=== PATIENT | male | born 1990 | race Caucasian/White ===

== ENCOUNTER 2016-09-04 11:09 | Emergency (ER) | payer OTHER ==
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
[2016-09-04 13:18] VITALS: BP 134/71; PULSE 96; RESP 18; TEMP 98.4
== END 2016-09-04 13:18 | disposition home or self-care (01) ==
LOC: EC 11:09
DX: F07.81 Postconcussional syndrome (principal); G44.309 Post-traumatic headache, unspecified, not intractable; V89.2XXA Person injured in unspecified motor-vehicle accident, traffic, initial encounter; F17.200 Nicotine dependence, unspecified, uncomplicated
CPT/HCPCS: 70450; 99284

== ENCOUNTER 2021-03-06 01:41 | Emergency (ER) | payer OTHER ==
--- NOTE | 2021-03-06 02:06 | ED ---
Psych HPI - General Stated Complaint: Mental Health Time Seen by Provider: 03/06/21 01:52 Source: RN notes reviewed, old records reviewed Mode of arrival: ambulatory Limitations: no limitations - History of Present Illness Initial Comments: This is a 31-year-old male DF for evaluation of mental health. A she admits to suicidal thoughts he does have severe back pain and admits to depression is been an issue since he's been in the . Patient did make a phone call about depression today and is how she presents to the ER today MD Complaint: suicidal ideation, feels depressed -: unknown Associated Psychiatric Symptoms: depression History of same: No Quality: intermittent, getting worse Improves With: none Worsens With: none Context: significant life stressor Associated Symptoms: denies other symptoms Treatments Prior to Arrival: placed on mental health hold - Related Data Home Medications Medication Instructions Recorded Confirmed No Known Home Medications 09/04/16 09/04/16 Allergies Allergy/AdvReac Type Severity Reaction Status Date / Time No Known Allergies Allergy Verified 09/04/16 11:39 Review of Systems ROS Statement: Those systems with pertinent positive or pertinent negative responses have been documented in the HPI. ROS Other: All systems not noted in ROS Statement are negative. Past Medical History Past Medical History: No Reported History History of Any Multi-Drug Resistant Organisms: None Reported Additional Past Surgical History / Comment(s): DENTAL IMPLANTS Past Psychological History: Anxiety, Depression, PTSD Past Alcohol Use History: Occasional Past Drug Use History: None Reported General Exam General appearance: alert, in no apparent distress Head exam: Present: atraumatic, normocephalic, normal inspection Eye exam: Present: normal appearance, PERRL, EOMI. Absent: scleral icterus, conjunctival injection, periorbital swelling ENT exam: Present: normal exam, mucous membranes moist Neck exam: Present: normal inspection. Absent: tenderness, meningismus, lymphadenopathy Respiratory exam: Present: normal lung sounds bilaterally. Absent: respiratory distress, wheezes, rales, rhonchi, stridor Cardiovascular Exam: Present: regular rate, normal rhythm, normal heart sounds. Absent: systolic murmur, diastolic murmur, rubs, gallop, clicks GI/Abdominal exam: Present: soft, normal bowel sounds. Absent: distended, tenderness, guarding, rebound, rigid Extremities exam: Present: normal inspection, full ROM, normal capillary refill. Absent: tenderness, pedal edema, joint swelling, calf tenderness Back exam: Present: normal inspection Neurological exam: Present: alert, oriented X3, CN II-XII intact Psychiatric exam: Present: normal affect, normal mood Skin exam: Present: warm, dry, intact, normal color. Absent: rash Course Vital Signs 03/06/21 03/06/21 04:17 06:13 Temperature 98.6 F Pulse Rate 77 80 Respiratory 18 14 Rate Blood Pressure 135/84 106/62 O2 Sat by Pulse 98 94 L Oximetry - Reevaluation(s) Reevaluation #1: 03/06/21 02:05 Record is reviewed Reevaluation #2: 03/06/21 02:06 Medically clear for psychiatric evaluation Medical Decision Making - Medical Decision Making 28 male seen and evaluated DF for psychiatric evaluation and treatment. Patient seen here in the ER, will be given outpatient follow-up. Patient contracts for safety not homicidal or suicidal Disposition Clinical Impression: Depression, Adjustment reaction of adult life Disposition: HOME SELF-CARE Condition: Fair Instructions (If sedation given, give patient instructions): Depression (ED) Is patient prescribed a controlled substance at d/c from ED?: No Referrals: None,Stated [Primary Care Provider] - 1-2 days
[2021-03-06 04:24] VITALS: TEMP 98.6
[2021-03-06 06:13] VITALS: BP 106/62; PULSE 80; RESP 14
== END 2021-03-06 07:32 | disposition home or self-care (01) ==
LOC: EC 01:41
DX: F32.9 Major depressive disorder, single episode, unspecified (principal); F43.20 Adjustment disorder, unspecified
CPT/HCPCS: 82075; 99284; 99285

== ENCOUNTER → 2022-09-08 | Outpatient (CLI) | payer OTHER ==
--- NOTE | 2022-09-08 16:05 | MR ---
EXAMINATION TYPE: MR lumbar spine wo con DATE OF EXAM: 09/08/2022 COMPARISON: NONE HISTORY: LOW BACK PAIN for 10 years going into left buttocks. TECHNIQUE: Multiplanar, multisequence imaging of the lumbar spine is performed without IV contrast. FINDINGS: Sagittal images of the lumbar spine show vertebral body heights and alignment to appear sat isfactory. There is disc desiccation with mild disc space narrowing at L5-S1 level otherwise the inte rvertebral discs demonstrate normal heights and hydration. The conus medullaris is normal in positio n and signal ending inferior T12 level. The bone marrow signal intensity is within normal limits. Axial images show T12-L1 through L3-L4 levels to appear within normal limits. Axial images at L4-L5 level shows mild broad-based posterior disc protrusion but the spinal canal is preserved and bilateral neural foramina are patent. Axial images at L5-S1 level show mild to moderate facet arthropathy bilaterally. There is posterior i ncreased signal or annular tear with central disc extrusion extending superiorly by roughly 1.3 cm fr om superior margin of disc space sagittal image 9 minimally effacing the anterior thecal sac. Backgro und mild broad disc bulge. Mild to moderate bilateral anterior inferior neural foraminal narrowing en croaches along the anterior-inferior margin of bilateral L5 nerves in the foramina seen best on sagit adithya image 4 on the left and sagittal image 13 on the right. Paraspinal muscle bulk is preserved. IMPRESSION: Focal degenerative change lumbosacral junction as detailed above.
== END | disposition home or self-care (01) ==
LOC: RADMRIMAIN 10:31
PROVIDERS: ATTEND Physician Assistant
DX: M47.817 Spondylosis without myelopathy or radiculopathy, lumbosacral region (principal); M99.73 Connective tissue and disc stenosis of intervertebral foramina of lumbar region; M51.27 Other intervertebral disc displacement, lumbosacral region
CPT/HCPCS: 72148